=== PATIENT | female | born 1960 | race Caucasian/White ===

== ENCOUNTER 2024-02-01 13:56 | Outpatient (AMB) | payer OTHER, SELFPAY ==
--- NOTE | 2024-02-01 14:00 | A.OFFPC_ITS ---
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 Intake Note: New patient visit Allergies Penicillins Allergy (Intermediate, Verified 02/01/24 14:01) Rash Tobacco use date assessed: 02/01/24 Dental Screening Dental Screen Date: 02/01/24 Did you have a dental visit in the last 12 months?: Yes Did you have a dental problem in the last 6 months where you did not have access to dental care?: No Was dental information given to patient?: Patient has dentist HPI HPI Comments History of Present Illness Details This is a 64-year-old female with a past medical history of hyperlipidemia, CVA, hypercoagulopathy and vitamin-D deficiency presenting to [facility] care and have a comprehensive exam. She transferred from Dr. Ortiz at [facility] care. Her current medications include atorvastatin 20 mg daily and aspirin 81 mg. Patient was seen at [facility] on 09/11/2023 for transient visual disturbances in her left eye. She underwent a full workup due to history of CVA, and imaging was negative. Patient also saw an eye doctor. They are unsure if it was an ocular migraine or TIA. It was recommended she increase atorvastatin to 40 mg and see her neurologist, but she was lost to follow up and did not change the medication. LDL 92 at the hospital. She is planning to change her schedule at work to work part days 4 days per week, and she thinks that then she will be able to set aside more time to work on diet and exercise. She does not want to increase her cholesterol medication. She had a CVA 11/06/2021 about 3 weeks after COVID-19 infection. They performed thrombectomy with Angio-Seal. She had an implantable traffic monitor specialist. Hematol ogy workup was negative except for revealing prothrombin gene mutation. They recommended continuing aspirin 81 mg daily indefinitely. 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 She had endorsed chronic intermittent lightheadedness since the stroke that improved with time. Neuro notes indicated that orthostasis following the stroke was likely due to involvement of the insula. Patient says for a couple of weeks she was having some stiffness in her ankles when she 1st woke up in the morning, but it has been getting better during the past week. No pain or swelling. She will monitor this. Patient had a normal mammogram in December of 2022. She declines referral for a mammogram this year because of how many imaging studies she has had done. Recommended annual liberal arts and humanities chair exam. She had a colonoscopy last Monday at [facility]. Told to repeat it in ten years. Declines flu vaccine. Patient says she is up-to-date with tetanus vaccine. Records transfer from her last office is pending. ROS: Constitutional: No unexplained weight loss, fever, chills, fatigue or night sweats. Eyes: No vision changes, blurry vision, double vision, eye pain, eye redness, eye discharge. ENT: No hearing loss, sneezing, congestion, runny nose or sore throat. Respiratory: No shortness of breath, cough or sputum production. Cardiovascular: No chest pain, chest pressure or chest discomfort. No palpitations or pedal edema. Gastrointestinal: No anorexia, nausea, vomiting or diarrhea. No abdominal pain or blood in stool. Genitourinary: No dysuria, hematuria, urinary frequency. Neurologic: No headache, syncope, unilateral weakness, ataxia, numbness or tingling in the extremities. Musculoskeletal: No muscle pain, back pain, joint pain or swelling. Hematologic/Lymphatics: No bleeding. No painful lymph nodes. Skin: No rashes. No new or changing skin lesions. Endocrine: No cold or heat intolerance. No polyuria or polydipsia. Psychiatric: No depression or anxiety. No SI/HI. Physical exam: Constitutional: Alert, in no distress. Head: Normocephalic. Eyes: Pupils are equal, round and reactive to light. Extraocular muscles intact. Ear, Nose and Throat: Canals clear. TMs normal. Normal nasal mucosa. No nasal discharge. No oral lesions. Neck: Supple, Full range of motion. No lymphadenopathy. No palpable thyroid masses. Respiratory: Clear to auscultation. Cardiovascular: S1 S2 regular. No murmurs. No carotid bruits. Gastrointestinal: Abdomen soft, non-tender, non-distended. Normal bowel sounds. No palpable masses. Neurologic: No focal neurological deficits. Symmetric patellar reflexes. Moves all extremities spontaneously. Sensation intact bilaterally. Skin: Fading ecchymosis on the left forearm. 1 cm, mobile, rubbery left forearm lesion most consistent with lipoma by exam. Musculoskeletal: No gross deformities. Normal range of motion. Extremities: Warm and well perfused. No clubbing, cyanosis or edema. Psychiatric: Normal mood and affect [facility] Medical History (Updated 02/01/24 @ 16:58 by CORNEL Cabrales) Prothrombin gene mutation Transient vision disturbance History of CVA (cerebrovascular accident) Cervical polyp Surgical History (Updated 02/01/24 @ 16:58 by CORNEL Cabrales) Hx of tubal ligation History of hysteroscopy History of thrombectomy Social History Housing: House Patient Tobacco Use Status: Former Tobacco user Cigarettes Per Day: 3 Years Smoked: 10 e-Cigarette/Vaping Use: Never Used Second Hand Smoke Exposure: No service: No Current occupational status: employed 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 1. Little interest or pleasure in doing things: not at all 2. Feeling down, depressed, or hopeless: not at all 3. Trouble falling or staying asleep, or sleeping too much: not at all 4. Feeling tired or having little energy: not at all 5. Poor appetite or overeating: not at all 6. Feeling bad about yourself - or that you are a failure or have let yourself or your family down: not at all 7. Trouble concentrating on things, such as reading the newspaper or watching television: not at all 8. Moving or speaking so slowly that other people could have noticed. Or the opposite - being so fidgety or restless that you have been moving around a lot more than usual: not at all 9. Thoughts that you would be better off or of hurting yourself in some way: not at all Total score: 0 Source: Developed by Drs. Simon Car, Beatriz Montelongo, Eldon Serna and colleagues, with an educational nayely from [employer]. Thrive Questionnaire Date Thrive assessed: 01/25/24 I am a: Patient What is your living situation today?: I have a steady place to live Within the past 12 months, did the food you bought not last and you didn't have the money to get more?: Never true Within the past 12 months, did you worry whether your food would run out before you got money to buy more?: Never true Do you have trouble paying for medicines?: No Do you have trouble getting transportation to medical appointments?: No Do you have trouble paying your heating and electricity bill?: No Do you have trouble taking care of your child, family member or friend?: No Do you have trouble with day-to-day activities such as bathing, preparing meals, shopping, managing finances, etc.?: No Are you currently unemployed and looking for a job?: No Are you interested in more education?: No Please select the resources that you would like help with: None Currently or been in a relationship where the following occur: No concerns reported THRIVE Score: 0 AUDIT C Alcohol Use Questionnaire (AUDIT-C) 1. How often do you have a drink containing alcohol?: Monthly or less 2. How many drinks containing alcohol do you have on a typical day when you are drinking?: 1 or 2 3. How often do you have six or more drinks on one occasion?: Never Total Score: 1 JOHNNA-7 AMB Questionnaire JOHNNA-7 Feeling nervous, anxious, or on edge: 0 = Not at all Not being able to stop or control worryin = Not at all Worrying too much about different things: 0 = Not at all Trouble relaxin = Not at all Being so restless that it is hard to sit still: 0 = Not at all Becoming easily annoyed or irritable: 0 = Not at all Feeling afraid as if something awful might happen: 0 = Not at all Total JOHNNA-7 score (0-4 normal; 5-9 mild; 10-14 moderate; 15-21 severe): 0 Source: Developed by Drs. Simon Car, Beatriz Montelongo, Eldon Serna and colleagues, with an educational nayely from [employer]. Physical exam (Primary Care) Vital Signs: Last Vital Signs Temp 97.8 F 02/01/24 14:03 Pulse 55 02/01/24 14:03 Resp 12 02/01/24 14:03 BP 106/62 02/01/24 14:03 Pulse Ox 98 02/01/24 14:03 Oxygen Delivery Method Room Air 02/01/24 14:03 BMI result Body Mass Index 26.1 Tobacco/Smoking Status: Tobacco use Status Tobacco use date assessed 02/01/24 02/01/24 14:08 Patient Tobacco Use Status Former Tobacco user 02/01/24 14:08 e-Cigarette/Vaping Use Never Used 02/01/24 14:08 PHQ-9: PHQ-9 Score PHQ-9: Total score 0 02/01/24 14:15 Thrive Assessment: Date of Thrive Assessment Date Thrive assessed 01/25/24 02/01/24 14:08 Currently or been in a relationship where the following occur: No concerns reported Coding Level of Care Code Est Pt Prev Care 40-64y(09963) Diagnoses Routine physical examination Z00.00 Transient vision disturbance H53.9 History of CVA (cerebrovascular accident) Z86.73 Assessment & Plan Assessment & Plan (1) Routine physical examination: Code(s): Z00.00 - Encounter for general adult medical examination without abnormal findings Plan: Patient is seen today for a routine physical. 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 Patient referred back to Neurology at [facility]. Recommended increasing atorvastatin, but she declined. She is working on lifestyle modifications come March 20 when her schedule changes. Requested labs for 2024. Continue baby aspirin 81 mg daily indefinitely. She will continue the current dose of atorvastatin. (3) History of CVA (cerebrovascular accident): Comment: 2021 Code(s): Z86.73 - Personal history of transient ischemic attack (TIA), and cerebral infarction without residual deficits Category: Medical Plan: Follow up in 1 year for a physical exam. Orders: Orders Complete Blood Count Auto Diff Today D68.52 - Prothrombin gene mutation, H53.9 - Unspecified visual disturbance, Z00.00 - Encounter for general adult medical examination without abnormal findings, Z13.6 - Encounter for screening for cardiovascular disorders, Z86.73 - Personal history of transient ischemic attack (TIA), and cerebral infarction without residual deficits Comprehensive Met. Panel Today D68.52 - Prothrombin gene mutation, H53.9 - Unspecified visual disturbance, Z00.00 - Encounter for general adult medical examination without abnormal findings, Z13.6 - Encounter for screening for cardiovascular disorders, Z86.73 - Personal history of transient ischemic attack (TIA), and cerebral infarction without residual deficits Lipid Panel Today D68.52 - Prothrombin gene mutation, E78.5 - Hyperlipidemia, unspecified, H53.9 - Unspecified visual disturbance, Z00.00 - Encounter for general adult medical examination without abnormal findings, Z13.6 - Encounter for screening for cardiovascular disorders, Z86.73 - Personal history of transient ischemic attack (TIA), and cerebral infarction without residual deficits TSH reflex Free T4 Today D68.52 - Prothrombin gene mutation, H53.9 - Unspecified visual disturbance, Z00.00 - Encounter for general adult medical examination without abnormal findings, Z13.6 - Encounter for screening for cardiovascular disorders, Z86.73 - Personal history of transient ischemic attack (TIA), and cerebral infarction without residual deficits Referrals Neurology Referral Z86.73 - Personal history of transient ischemic attack (TIA), and cerebral infarction without residual deficits
[2024-02-01 14:03] VITALS: BP 106/62; PULSE 55; RESP 12; TEMP 36.6; O2SAT 98; BMI 26.1
== END 2024-02-01 14:52 | disposition home or self-care (01) ==
PROVIDERS: PCP Physician Assistant Medical; Visit Provider Physician Assistant Medical
DX: Z00.00 Encounter for general adult medical examination without abnormal findings (principal); H53.9 Unspecified visual disturbance; Z86.73 Personal history of transient ischemic attack (TIA), and cerebral infarction without residual deficits

== ENCOUNTER → 2024-02-01 13:56 | Outpatient (BNVA) | payer OTHER, SELFPAY | PROVIDERS: PCP Physician Assistant Medical; Visit Provider Physician Assistant Medical ==

== ENCOUNTER 2025-01-24 10:22 | Outpatient (REF) | payer OTHER, SELFPAY ==
[2025-01-24 11:25] LABS: MANUAL DIFF FLAG NO
[2025-01-24 11:50] LABS: Hematocrit 43.0 % (37.0-47.0); Hemoglobin 14.2 g/dl (12.0-16.0); Imm Gran Abs Auto 0.00 X10*3/uL (0.00-0.03); Imm Gran Pct Auto 0.0 % (0.0-0.4); Lymphocytes Absolute Auto 1.2 X10*3/uL (1.2-4.9); Mean Corpuscular HGB Conc 33.0 g/dl (31.0-35.0); Mean Corpuscular Hemoglobin 30.3 pg (27.0-33.0); Mean Corpuscular Volume 91.7 fL (80.0-98.0); NRBC Abs Auto 0.000 X10*3/uL (0.0-0.012); NRBC Pct Auto 0.0 /100WBC (0.0-0.2); Platelet Count 201 X10*3/uL (160-400); Red Blood Count 4.69 X10*6/uL (4.20-5.50); White Blood Count 3.9 X10*3/uL (4.8-10.8)
--- OUTSIDE RECORDS SUMMARY | 2025-01-24 12:13 | XMS_ITS | Encounter Summary ---
Author Organization [facility] Address [address] [place] [address] Care Team Providers Care Quality Measurement Specialist Name Role Phone Supriya Hand Primary Care Provider [phone] Encounter Details Date Type Department Care Team (Late st Contact Info) Description 10/25/2021 Orders Only [facility] Neuro Interventional Radiology [address] [place] [address] [id number] Ricardo Rae PA [address] [place], [place] [id number] Social History Tobacco Use Types Packs/Day Years Used Date Smoking Tobacco: Never Assessed Comments Unknown Sex and Gender Information Value Date Recorded Sex Assigned at Female 11/25/2021 7:43 PM EDT Legal Sex Female 12:21 PM EDT Gender Identity Female 11/25/2021 7:43 PM EDT Sexual Orientation Straight 11/25/2021 7: 43 PM EDT documented as of this encounter Plan of Treatment Not on file documented as of this encounter Procedures * Due to [place] law, this organization might not be sharing negative HIV tests. Procedure Name Priority Date/Time Associated Diagnosis Comments IR ACUTE STROKE MECHANICAL THROMBECTOMY Routine 10/25/2021 3:55 PM EDT documented in this encounter Results * Due to [place] law, this organization might not be sharing negative HIV tests. * IR Acute Stroke Mechanical Thrombectomy (10/25/2021 3:55 PM EDT) Anatomical Region Laterality Modality Lower Extremities, Upper Extremities X-Ray Angiography 10/26/2021 4:37 PM EDT Impressions 10/28/2021 8:15 AM EDT 1. Successful single-pass stent-retriever mechanical thrombectomy for treatment of a left inferior division M2/MCA occlusion with near complete recanalization (TICI 2C). 2. No acute intracranial hemorrhage or evidence of new large territory infarct on post procedure flat-panel head CT. * Please don't hesitate to contact the NeuroIR department at [address] [place] [address] for any patient-related questions or [phone] for any scheduling questions. I, Briseida Wilkerson, have reviewed the examination and concur with the findings as reported or so edited. Resident/Fellow:Miroslava Flores If this radiology report contains a blank impression section, it is an incomplete radiology report. Please contact the interpreting radiologist or applicable radiology division as soon as possible to obtain the completed interpretation. Workstation ID: [id number] Narrative 10/28/2021 8:15 AM EDT EMERGENT DIAGNOSTIC CEREBRAL ANGIOGRAPHY AND INTERVENTION PERFORMED BY THE DIVISION OF NEUROINTERVENTIONAL RADIOLOGY ([phone]) Clinical History: 61 year old woman with no past medical history who experienced stroke symptoms after waking up on Monday10/25/2021 when she went to the cafeteria and tried to talk. Last known well was the night prior (10:30pm on 10/24/2021). The patient's symptoms included word finding difficulties. Premorbid mRS was 0. NIH stroke scale was 4 on arrival to [facility] (as direct to [facility]). CT/CTA from the same day demonstrated a left inferior division M2 occlusion with a large penumbra in the left MCA territory. (ASPECTS score = 10). CTA showed very good collaterals. No tPA was given as patient was outside of the treatment window. Emergent diagnostic cerebral angiography and thrombectomy was requested by the stroke team. Diagnosis: Acute ischemic stroke, L inferior division M2/MCA occlusion. Comparison: CT head, CTA head/neck and CT Perfusion (outside study) Operators: Dr. Briseida Wilkerson (PRAMOD Attending) and Dr. Abner Olsen (PRAMOD attending) Fellow: Dr Miroslava Flores (PRAMOD Fellow) Sedation: Procedure was performed under general anesthesia provided by the Department of Anesthesiology. Continuous cardiovascular monitoring was performed. Contrast Material: A total amount of 60 mL of Visipaque 320 was used. Access: Right common femoral artery. Closure: 8 Faroese Angio-Seal Radiation dose: Fluoroscopy Time: 8.1 min Frontal - 387.01 mGy Lateral - 138.12 mGy Technique: Part A: Diagnostic angiography with selective catheterization of following vessels: 1. Left common carotid artery, frontal and lateral views of the neck. 2. Left internal carotid artery, frontal and lateral views of the head. 3. Right common femoral artery angiogram, ZAMBIAN view. Part B: Endovascular Treatment: Mechanical thrombectomy/aspiration of a left inferior division M2/MCA occlusion. 1. Placement, under biplane roadmap, of an 8 Faroese EmboGuard balloon guide catheter, within the left internal carotid artery. 2. Magnified frontal and lateral angiograms of the head, via balloon guide catheter contrast injection, centered on the left MCA territory. 3. Via triaxial technique, navigation of a 5F Rae aspiration catheter, over a Phenom 21 microcatheter and Synchro 0.014 microguidewire, into the left ICA. 4. Via coaxial technique, navigation of the microcatheter, over a Synchro 0.014 microguidewire, within the left MCA. 5. Magnified frontal and lateral angiograms of the head, via microcatheter contrast injection, centered on the left MCA territory. 6. Deployment of a 3 x 20 mm Solitaire thrombectomy device, spanning within a left inferior division M2 branch to distal M1 segment. 7. The device was allowed to intercalate with the clot for 4 minutes. 8. Removal of the microcatheter under fluoroscopy. 9. Inflation of the guiding catheter balloon. 10. Retrieval of the thrombectomy device into the Rae 5 aspiration catheter until resistance was felt and subsequent removal of the entire system under constant aspiration (ARTS technique). 11. Follow-up magnified frontal and lateral left ICA angiograms via balloon guide catheter contrast injection, centered on the left MCA territory. 12. Left internal carotid artery, slow intra-arterial infusion of 10 mg of verapamil over 5 minutes. 13. Follow-up frontal and lateral left ICA angiograms via balloon guide catheter contrast injection, with full view of the head. 14. Post-procedural flat panel XperCT acquisition of the entire head was obtained to exclude any new cerebral infarct or hemorrhagic complication. Procedure Report: Informed consent: The details of the procedure including the benefits and risks were discussed with the patient, including risks of minor, major stroke, and major bleeding necessitating surgical intervention, contrast reaction, groin hematoma and . Informed verbal consent was obtained from the patient and placed in the patient's medical chart. A. Diagnostic Angiography Both groins were draped and prepped in a sterile fashion. Using the modified Seldinger technique and a micropuncture system, an 8 Faroese long femoral sheath was placed in the right common femoral artery. Then, an 8 Faroese Emboguard balloon guide catheter was navigated over a 5F Neuron Select catheter and Terumo 0.035 Glidewire into the aortic arch under fluoroscopic guidance. Under fluoroscopy, the catheter was placed into the left common carotid artery and frontal and lateral views were acquired. The catheter was then advanced into the left internal carotid artery followed by frontal and lateral view angiograms of the left ICA. FINDINGS: 1. There is an occlusion of the left inferior divsion M2 segment. Right common femoral artery angiogram: Normal course and caliber of the right common femoral artery. The arteriotomy site is above the femoral bifurcation in a segment of vessel that is more than 5 mm in diameter. Part B: Endovascular Treatment: Mechanical thrombectomy/aspiration of a left M2/MCA occlusion. The balloon guide catheter was then navigated within the distal cervical segment of the left ICA. Magnified frontal and lateral angiograms of the head, via balloon guide catheter contrast injection, centered on the left MCA territory were obtained. Via triaxial technique, a 5F Rae aspiration catheter was navigated over a Phenom 21 microcatheter and Synchro 0.014 microguidewire, into the left ICA. Via triaxial technique, the microcatheter was navigated, over a Synchro 0.014 microguidewire, into the left inferior division M2 segment. Then a 3 x 20 Solitaire thrombectomy device was deployed, spanning from the left M2 to distal M1 segment. The device was allowed to intercalate with the clot for 4 minutes. Under fluoroscopy, the microcatheter was subsequently removed. The guiding catheter balloon was inflated in the left ICA. Retrieval of the stent retriever into the intermediate catheter was performed under constant aspiration until resistance was felt (ARTS technique) followed by removal of the entire system. Follow-up frontal and lateral angiograms of the head were performed, demonstrating a near complete recanalization of the left M2/MCA occlusion (TICI 2C), with hoahaoism of antegrade flow. Slow flow cortical vessels are noted in the parietal/angular branch territory. Mild guide catheter induced vasospasm was noted in the cervical left ICA. 10mg verapamil were ehsan infused intra-arterially into the left ICA. Balloon guide catheter was retracted into the proximal left internal carotid artery followed by frontal and lateral views of the left ICA contrast injection, showing improvement of the previously seen vasospasm as well as unchanged intracracranial flow (TICI 2C). There was no hemorrhagic complication or new large territory infarct on post procedural flat-panel head CT. After the endovascular intracranial mechanical thrombectomy/aspiration procedure, an 8 Faroese Angioseal closure device was placed at the right common femoral artery access site. Adequate hemostasis was achieved. The sites were cleansed and a sterile dressing was applied. Complications: None. Resulting Agency Comment [id number] Procedure Note Briseida Wilkerson MD - 10/28/2021 EMERGENT DIAGNOSTIC CEREBRAL ANGIOGRAPHY AND INTERVENTION PERFORMED BY THEDIVISION OF NEUROINTERVENTIONAL RADIOLOGY ([phone]) Clinical History: 61 year old woman with no past medical history whoexperienced stroke symptoms after waking up on Monday10/25/2021 when shewent to the cafeteria and tried to talk. Last known well was the nightprior (10:30pm on 10/24/2021). The patient's symptoms included word findingdifficulties. Premorbid mRS was 0. [facility] CT/CTA from the same day demonstrated a leftinferior division M2 occlusion with a large penumbra in the left MCAterritory. (ASPECTS score = 10). CTA showed very good collaterals. No tPAwas given as patient was outside of the treatment window. Emergentdiagnostic cerebral angiography and thrombectomy was requested by thestroke team. Diagnosis: Acute ischemic stroke, L inferior division M2/MCA occlusion. Comparison: CT head, CTA head/neck and CT Perfusion (outside study) Operators: Dr. Briseida Wilkerson (PRAMOD Attending) and Dr. Abner Olsen (NIRattending) Fellow: Dr Miroslava Flores (PRAMOD Fellow) Sedation: Procedure was performed under [facility]. Continuous cardiovascular monitoring wasperformed. Contrast Material: A total amount of 60 mL of Visipaque 320 was used. Access: Right common femoral artery. Closure: 8 Faroese Angio-Seal Radiation dose: Fluoroscopy Time: 8.1 min Frontal - 387.01 mGy Lateral - 138.12 mGy Technique: Part A: Diagnostic angiography with selective catheterization of followingvessels: 1. Left common carotid artery, frontal and lateral views of the neck. 2. Left internal carotid artery, frontal and lateral views of the head. 3. Right common femoral artery angiogram, ZAMBIAN view. Part B: Endovascular Treatment: Mechanical thrombectomy/aspiration of aleft inferior division M2/MCA occlusion. 1. Placement, under biplane roadmap, of an 8 Faroese EmboGuard balloonguide catheter, within the left internal carotid artery. 2. Magnified frontal and lateral angiograms of the head, via balloonguide catheter contrast injection, centered on the left MCA territory. 3. Via triaxial technique, navigation of a 5F Rae aspiration catheter,over a Phenom 21 microcatheter and Synchro 0.014 microguidewire, into theleft ICA. 4. Via coaxial technique, navigation of the microcatheter, over a Synchro0.014 microguidewire, within the left MCA. 5. Magnified frontal and lateral angiograms of the head, viamicrocatheter contrast injection, centered on the left MCA territory. 6. Deployment of a 3 x 20 mm Solitaire thrombectomy device, spanningwithin a left inferior division M2 branch to distal M1 segment. 7. The device was allowed to intercalate with the clot for 4 minutes. 8. Removal of the microcatheter under fluoroscopy. 9. Inflation of the guiding catheter balloon. 10. Retrieval of the thrombectomy device into the Rae 5 aspirationcatheter until resistance was felt and subsequent removal of the entiresystem under constant aspiration (ARTS technique). 11. Follow-up magnified frontal and lateral left ICA angiograms viaballoon guide catheter contrast injection, centered on the left MCAterritory. 12. Left internal carotid artery, slow intra-arterial infusion of 10 mgof verapamil over 5 minutes. 13. Follow-up frontal and lateral left ICA angiograms via balloon guidecatheter contrast injection, with full view of the head. 14. Post-procedural flat panel XperCT acquisition of the entire head wasobtained to exclude any new cerebral infarct or hemorrhagic complication. Procedure Report: Informed consent: The details of the procedure including the benefits andrisks were discussed with the patient, including risks of minor, majorstroke, and major bleeding necessitating surgical intervention, contrastreaction, groin hematoma and . Informed verbal consent was obtainedfrom the patient and placed in the patient's medical chart. A. Diagnostic Angiography Both groins were draped and prepped in a sterile fashion. Using themodified Seldinger technique and a micropuncture system, an 8 Faroese longfemoral sheath was placed in the right common femoral artery. Then, an 8 Faroese Emboguard balloon guide catheter was navigated over a 5FNeuron Select catheter and Terumo 0.035 Glidewire into the aortic archunder fluoroscopic guidance. Under fluoroscopy, the catheter was placed into the left common carotidartery and frontal and lateral views were acquired. The catheter was thenadvanced into the left internal carotid artery followed by frontal andlateral view angiograms of the left ICA. FINDINGS: 1. There is an occlusion of the left inferior divsion M2 segment. Right common femoral artery angiogram: Normal course and caliber of theright common femoral artery. The arteriotomy site is above the femoralbifurcation in a segment of vessel that is more than 5 mm in diameter. Part B: Endovascular Treatment: Mechanical thrombectomy/aspiration of aleft M2/MCA occlusion. The balloon guide catheter was then navigated within the distal cervicalsegment of the left ICA. Magnified frontal and lateral angiograms of thehead, via balloon guide catheter contrast injection, centered on the leftMCA territory were obtained. Via triaxial technique, a 5F Rae aspiration catheter was navigated overa Phenom 21 microcatheter and Synchro 0.014 microguidewire, into the leftICA. Via triaxial technique, the microcatheter was navigated, over aSynchro 0.014 microguidewire, into the left inferior division M2 segment. Then a 3 x 20 Solitaire thrombectomy device was deployed, spanning fromthe left M2 to distal M1 segment. The device was allowed to intercalatewith the clot for 4 minutes. Under fluoroscopy, the microcatheter wassubsequently removed. The guiding catheter balloon was inflated in theleft ICA. Retrieval of the stent retriever into the intermediate catheterwas performed under constant aspiration until resistance was felt (ARTStechnique) followed by removal of the entire system. Follow-up frontal and lateral angiograms of the head were performed,demonstrating a near complete recanalization of the left M2/MCA occlusion(TICI 2C), with hoahaoism of antegrade flow. Slow flow cortical vesselsare noted in the parietal/angular branch territory. Mild guide catheter induced vasospasm was noted in the cervical left ICA.10mg verapamil were ehsan infused intra-arterially into the left ICA.Balloon guide catheter was retracted into the proximal left internalcarotid artery followed by frontal and lateral views of the left ICAcontrast injection, showing improvement of the previously seen vasospasmas well as unchanged intracracranial flow (TICI 2C). There was no hemorrhagic complication or new large territory infarct onpost procedural flat-panel head CT. After the endovascular intracranial mechanical thrombectomy/aspirationprocedure, an 8 Faroese Angioseal closure device was placed at the rightcommon femoral artery access site. Adequate hemostasis was achieved. Thesites were cleansed and a sterile dressing was applied. Complications: None. IMPRESSION: 1. Successful single-pass stent-retriever mechanical thrombectomy fortreatment of a left inferior division M2/MCA occlusion with near completerecanalization (TICI 2C). 2. No acute intracranial hemorrhage or evidence of new large territoryinfarct on post procedure flat-panel head CT. * Please don't hesitate to contact the NeuroIR department at [phone] any patient-related questions or [phone] for any schedulingquestions. I, Briseida Wilkerson, have reviewed the examination and concur with the findingsas reported or so edited. Resident/Fellow:Miroslava Flores If this radiology report contains a blank impression section, it is anincomplete radiology report. Please contact the interpreting radiologistor applicable radiology division as soon as possible to obtain thecompleted interpretation. Workstation ID: [id number] Ricardo UNGER [facility] IR PROCEDURES Final Re sult documented in this encounter Visit Diagnoses Not on filedocumented in this encounter Care Teams Quality Measurement Specialist Relationship Specialty Start Date End Date CarmelaSupriya De Anda [address] [place] [address] PCP - General Family Medicine 10/05/23 documented as of this encounter
--- OUTSIDE RECORDS SUMMARY | 2025-01-24 12:13 | XMS_ITS | Encounter Summary ---
Author Organization [facility] Address [address] [place] [address] Care Team Providers Care Cloth Sponger Name Role Phone Supriya Hand Primary Care Provider [phone] Encounter Details Date Type Department Care Team (Late st Contact Info) Description 11/29/2021 myChart Message [facility] [address] [place] [address] [phone] Bessie Santoyo, RN PRAMOD phone # [phone] Social History Tobacco Use Types Packs/Day Years [...] on file documented as of this encounter Visit Diagnoses Not on filedocumented in this encounter Care Teams Cloth Sponger Relationship Specialty Start Date End Date YazanSupriya [address] [place] [address] PCP - General Family Medicine 10/05/23 documented as of this encounter
--- OUTSIDE RECORDS SUMMARY | 2025-01-24 12:13 | XMS_ITS | Encounter Summary ---
Author Organization [facility] Address [address] [place] [address] Care Team Providers Care Turfgrass Management Professor Name Role Phone Supriya Hand Primary Care Provider [phone] Encounter Details Date Type Department Care Team ([facility] st Contact Info) Description 10/25/2021 Telephone [facility] Interventional Radiology [address] [place] [id number] Erica Fraga RN Social History Tobacco Use Types Packs/Day Years [...] on filedocumented in this encounter Care Teams Turfgrass Management Professor Relationship Specialty Start Date End Date Supriya Hand [address] [place] [address] PCP - General Family Medicine 10/05/23 documented as of this encounter
--- OUTSIDE RECORDS SUMMARY | 2025-01-24 12:13 | XMS_ITS | Clinical Summary ---
Author Organization [facility] Address [address] [place] [address] Care Team Providers Care News Editor Name Role Phone Supriya Hand Primary Care Provider [phone] Allergies Active Allergy Reactions Criticality Noted Date Comments Amoxicillin Unknown 10/25/2021 Reported by son. Needs to be confirmed by patient Penicillin Unknown 10/25/2021 Reported by son. Needs to be confirmed by patient Medications aspirin chewable tablet 81 mg Chew and swallow 1 tablet (81 mg total) by mouth once a day. 30 tablet 11 2 Active atorvastatin (LIPITOR) 80 mg tablet Take 1 tablet (80 mg total) by mouth nightly. 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 Social History Tobacco Use Types Packs/Day Years Used Date Smoking Tobacco: Never Smokeless Tobacco: Never Tobacco Cessation:Counseling Given: Not Answered Alcohol Use Standard Drinks/Week Comments Yes 0 (1 standard drink = 0.6 oz pur e alcohol) 1 martini per week Comments Unknown Sex and Gender Information Value Date Recorded Sex Assigned at Female 11/25/2021 7:43 PM EDT Legal Sex Female 12:21 PM EDT Gender Identity Female 11/25/2021 7:43 PM EDT Sexual Orientation Straight 11/25/2021 7: 43 PM EDT Last Filed Vital Signs Vital Sign Reading Time Taken Comments Blood Pressure 117/68 10/27/2021 12:15 PM EDT Pulse 51 10/27/2021 12:00 PM EDT Temperature 36.8 C (98.2 F) 10/27/2021 12:30 PM EDT Respiratory Rate 18 10/27/2021 12:00 PM EDT Oxygen Saturation 100% 10/27/2021 12:30 PM EDT Inhaled Oxygen Concentration - - Weight 70.3 kg (155 lb) 04/05/2023 10:19 AM EST Height 170.2 cm (5' 7 ) 10/26/2021 11:53 AM EDT Body Mass Index 24.28 10/26/2021 11:53 AM EDT Plan of Treatment Health Maintenance Due Date Last Done Comments Cervical Cancer Screening 1961 Cologuard 1961 Colon Cancer Screening 1961 Colonoscopy 1961 FOBT / Fit Test 1961 HIV Screening 1961 HPV and Pap Smear 1961 Pap Smear 1961 Sigmoidoscopy 1961 DTaP,Tdap,and Td Vaccines (1 - Tdap) 1983 Mammogram 2001 Pneumococcal Vaccine: 50+ Years (1 of 1 - PCV) 2011 Zoster Vaccines (1 of 2) 2011 Alcohol/Substance Use Screening 03/20/2024 COVID-19 Vaccine (4 - 2024-2 6 season) 2024 02/19/2021, 05/02/2020, 04/04/2020 Influenza Vaccine (#1) 2024 RSV Vaccine (60+ years old a nd patients) (1 - 1-dose 75+ series) 01/12/2036 Hepatitis B Vaccines Aged Out No long er eligible based on patient's age to complete this topic Medical Devices Implanted Type Area Online Advertising Manager Device Identifier Shelf Expiration Date Model / Serial / Lot Device Closure Vascular Plug 8fr Angio-Seal Vip - [id number] Implanted:Qty: 1 on 10/25/2021 at [facility] Implant [employer] 07/17/2022 [id number] / / [id number] Lnq22 Linq Ii [id number] [id number] Implanted:04/07 (Quantity not on file) Implantable Loop Recorder Medtronic LNQ22 LINQ II / RLB [id number] / Implantable Loop Recorder-1/19/2 023 Implanted:04/07 by Nestor Tobias NP (Quantity not on file) Explanted:02/07 by Reji Roblero NP (Quantity not on file) Implantable Loop Recorder Left: Chest Medtronic LINQ22 / RLB [id number] / [id number] Lnq22 [id number] Implanted:04/07 (Quantity not on file) Pacemaker Medtronic LNQ22 / [id number] / Insurance on file Advance Directives * Full Code (Latest Code Status on File) Date Activated Date Inactivated Comments 10/25/2021 4:41 PM 10/28/2021 9:22 AM Care Teams News Editor Relationship Specialty Start Date End Date Supriya Hand [address] [place] [address] PCP - General Family Medicine 10/05/23
--- OUTSIDE RECORDS SUMMARY | 2025-01-24 12:13 | XMS_ITS | Encounter Summary ---
Author Organization [facility] Address [address] [place] [address] Care Team Providers Care Investment Professional Name Role Phone Supriya Hand Primary Care Provider [phone] Encounter Details Date Type Department Care Team (Late st Contact Info) Description 02/09/2022 myChart Message [facility] [address] [place] [phone] Jacqueline Flores MD [address] [place] [address] Phone call Social History Tobacco Use Types Packs/Day Years [...] on filedocumented in this encounter Care Teams Investment Professional Relationship Specialty Start Date End Date YazanSupriya [address] [place] [address] PCP - General Family Medicine 10/05/23 documented as of this encounter
--- OUTSIDE RECORDS SUMMARY | 2025-01-24 12:13 | XMS_ITS | Encounter Summary ---
Author Organization [facility] Address [address] [place] [address] Care Team Providers Care Castables Worker Name Role Phone Supriya Hand Primary Care Provider [phone] Encounter Details Date Type Department Care Team (Late st Contact Info) Description 11/29/2021 myChart Message [facility] [address] [place] [address] [phone] Bessie Santoyo, RN internal loop recorder Social History Tobacco Use Types Packs/Day Years [...] on filedocumented in this encounter Care Teams Castables Worker Relationship Specialty Start Date End Date CarmelaSupriya De Anda [address] [place] [address] PCP - General Family Medicine 10/05/23 documented as of this encounter
--- OUTSIDE RECORDS SUMMARY | 2025-01-24 12:13 | XMS_ITS | Encounter Summary ---
Author Organization [facility] Address [address] [place] [address] Care Team Providers Care Scaffolder Name Role Phone Supriya Hand Primary Care Provider [phone] Encounter Details Date Type Department Care Team (Late st Contact Info) Description 03/23/2022 myChart Message [facility] [address] [place] [address] [phone] Mychart, Generic Provider [address] [place] [phone] Implantable loop recorder Social History Tobacco Use Types [...] on filedocumented in this encounter Care Teams Scaffolder Relationship Specialty Start Date End Date Supriya Hand [address] [place] [address] PCP - General Family Medicine 10/05/23 documented as of this encounter
--- OUTSIDE RECORDS SUMMARY | 2025-01-24 12:13 | XMS_ITS | Encounter Summary ---
Author Organization [facility] Address [address] [place] [address] Care Team Providers Care Chef Concierge Name Role Phone Supriya Hand Primary Care Provider [phone] Encounter Details Date Type Department Care Team (Late st Contact Info) Description 11/26/2021 myChart Message [facility] [address] [place] [address] [phone] Mychart, Generic Provider [address] [place] [phone] Question about cost of ILR Social History Tobacco Use Types Packs/Day Years [...] on filedocumented in this encounter Care Teams Chef Concierge Relationship Specialty Start Date End Date Supriya Hand [address] [place] [address] PCP - General Family Medicine 10/05/23 documented as of this encounter
--- OUTSIDE RECORDS SUMMARY | 2025-01-24 12:13 | XMS_ITS | Encounter Summary ---
Author Organization [facility] Address [address] [place] [address] Care Team Providers Care Cloth Designer Name Role Phone Supriya Hand Primary Care Provider [phone] Encounter Details Date Type Department Care Team (Late st Contact Info) Description 02/07/2022 Orders Only [facility] [address] [place] [phone] [address] Social History Tobacco Use Types Packs/Day Years Used Date Smoking Tobacco: Never Assessed Comments Unknown Sex and Gender Information Value Date Recorded Sex Assigned at Female 11/25/2021 7:43 PM EDT Legal Sex Female 12:21 PM EDT Gender Identity Female 11/25/2021 7:43 PM EDT Sexual Orientation Straight 11/25/2021 7 :43 PM EDT documented as of this encounter Plan of Treatment Not on file documented as of this encounter Procedures * Due to [place] law, this organization might not be sharing negative HIV tests. Procedure Name Priority Date/Time Associated Diagnosis Comments LAB - SCANNED Routine 01/12/2022 documented in this encounter Results * Due to [place] law, this organization might not be sharing negative HIV tests. * LAB - SCANNED (01/12/2022) [facility] LAB HISTORICAL RESULTS Final Result documented in this encounter Visit Diagnoses Not on filedocumented in this encounter Care Teams Cloth Designer Relationship Specialty Start Date End Date Supriya Hand [address] [place] [address] PCP - General Family Medicine 10/05/23 documented as of this encounter
--- OUTSIDE RECORDS SUMMARY | 2025-01-24 12:13 | XMS_ITS | Encounter Summary ---
Author Organization [facility] Address [address] [place] [address] Care Team Providers Care Harvest Contractor Name Role Phone Supriya Hand Primary Care Provider [phone] Encounter Details Date Type Department Care Team (Late st Contact Info) Description 12/15/2021 myChart Message [facility] [address] [place] [phone] Mychart, Generic Provider [address] [place] [phone] 'dizziness complaints Social History Tobacco Use Types Packs/Day Years [...] on filedocumented in this encounter Care Teams Harvest Contractor Relationship Specialty Start Date End Date Supriya Hand [address] [place] [address] PCP - General Family Medicine 10/05/23 documented as of this encounter
--- OUTSIDE RECORDS SUMMARY | 2025-01-24 12:13 | XMS_ITS | Clinical Summary ---
Author Organization [facility] Address [address] [place] [address] Care Team Providers Care Railway Yard Assistant Name Role Phone Unavailable Primary Care Provider Unavailabl e Social History Tobacco Use Types Packs/Day Years Used Date Smoking Tobacco: Never Assessed Comments Unknown Sex and Gender Information Value Date Recorded Sex Assigned at Not on file Legal Sex Female 11:16 PM EDT Gender Identity Not on file Sexual Orientation Not on file Plan of Treatment Health Maintenance Due Date Last Done Comments Hepatitis C Virus Screening 1961 HIV Screening 1974 DTaP/Tdap/Td Vaccines (1 - Tdap) 01/12/1980 Pneumococcal Vaccines 50+ (1 of 1 - PCV) 2011 Zoster (Shingles) Vaccine (1 of 2) 2011 COVID-19 Vaccine ( - 2023-2 5 season) 2024 RSV Vaccine 50 years and old er and Patients (1 - 1-dose 75+ series) 01/12/2036 Hepatitis B Vaccines Aged Out No long er eligible based on patient's age to complete this topic
--- OUTSIDE RECORDS SUMMARY | 2025-01-24 12:13 | XMS_ITS | Encounter Summary ---
Author Organization [facility] Address [address] [place] [address] Care Team Providers Care Red Hat Open Stack Administrator Name Role Phone Supriya Hand Primary Care Provider [phone] Encounter Details Date Type Department Care Team (Late st Contact Info) Description 12/14/2021 myChart Message [facility] [address] [place] [address] [phone] Mychart, Generic Provider [address] [place] [phone] 30 day heart monitor report Social History Tobacco Use Types Packs/Day Years [...] on filedocumented in this encounter Care Teams Red Hat Open Stack Administrator Relationship Specialty Start Date End Date Supriya Hand [address] [place] [address] PCP - General Family Medicine 10/05/23 documented as of this encounter
[2025-01-24 12:33] LABS: Alanine Aminotransferase 37 U/L (0-31); Albumin Level 4.3 g/dL (3.5-5.0); Alkaline Phosphatase 63 U/L (39-117); Anion Gap 10 (12-20); Aspartate Amino Transferase 38 U/L (5-31); Blood Urea Nitrogen 18 mg/dL (9-16); Calcium 8.9 mg/dL (8.4-10.2); Carbon Dioxide 31 mmol/L (22-29); Chloride 105 mmol/L (96-108); Cholesterol 155 mg/dL (<200); Estimated Glomerular Filt Rate > 60; HDL Cholesterol 63 mg/dL (>40); Potassium 3.9 mmol/L (3.3-5.1); Sodium 142 mmol/L (135-145); Total Protein 6.7 g/dL (6.5-8.0); Triglycerides 42 mg/dL (<150)
== END 2025-01-24 10:23 | disposition home or self-care (01) ==
LOC: HO.WFDLDS 10:22
PROVIDERS: Visit Provider Physician Assistant Medical
DX: Z00.00 Encounter for general adult medical examination without abnormal findings (principal); H53.9 Unspecified visual disturbance; D68.52 Prothrombin gene mutation; E78.5 Hyperlipidemia, unspecified; Z13.6 Encounter for screening for cardiovascular disorders; Z86.73 Personal history of transient ischemic attack (TIA), and cerebral infarction without residual deficits
CPT/HCPCS: 36415; 80053; 80061; 84443; 85025

== ENCOUNTER 2025-02-03 16:02 | Outpatient (AMB) | payer OTHER, SELFPAY ==
--- NOTE | 2025-02-03 16:09 | A.OFFPC_ITS ---
Vital Signs 02/03/25 16:13 02/03/25 22:04 Height 5 ft 4.65 in Weight 160 lb BMI 26.9 BP 133/79 Blood Pressure Location Lt brachial Position Sitting Respiration 13 Pulse 53 Pulse Source Pulse Oximeter Temp 96.6 F L 98.1 F Temp Source Temporal Artery Scan Temporal Artery Scan Pulse Oximetry (%) 99 Oxygen Delivery Method Room Air Intake Visit Reasons: annual CPE Intake Note: CPE. Patien c/o feeling dizzy on and off but worse in the last couple of days. Registered Nurse Supervisor Required: No Allergies Penicillins Allergy (Intermediate, Verified 02/03/25 16:13) Rash Tobacco use date assessed: 02/03/25 Fall risk assessment: No Falls in past year Last assessed Fall Risk: 02/03/25 Dental Screening Dental Screen Date: 02/03/25 Did you have a dental visit in the last 12 months?: Yes Did you have a dental problem in the last 6 months where you did not have access to dental care?: No Was dental information given to patient?: Patient has dentist HPI HPI Comments History of Present Illness Details This is a 65-year-old female with a past medical history of hyperlipidemia, CVA, hypercoagulopathy and vitamin-D deficiency presenting for a physical exam. We reviewed her recent labs which showed mild abnormalities with her white blood cell count and liver enzymes. She does not drink alcohol. She does take a statin. The dose has not been adjusted. Denies recent infections. She had a CVA 11/06/2021 about 3 weeks after COVID-19 infection. They performed thrombectomy with Angio-Seal. She had an implantable case monitor for 2 years. Hematology workup was negative except for revealing prothrombin gene mutation. They recommended continuing aspirin 81 mg daily indefinitely. 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 She continues to endorse chronic dizziness that only began after having the stroke. Neuro notes indicated that orthostasis following the stroke was likely due to involvement of the insula. She has a chronically low heart rate in the 50s. Denies chest pain or shortness of breath. She has been told to increase her fluid intake. She does not notice any correlation with allergies and dizziness. Denies congestion. LDL cholesterol 84. She endorses soreness on the outer aside of the right foot for the past year. No aggravating or alleviating factors. No history of trauma. No swelling, numbness or tingling. She had her colonoscopy completed at [facility] in January of 2024, and she was told to repeat it in 10 years. She sees Gynecology, and she discussed getting a bone density test at age 66 y ears old. Patient said she had a mammogram within the past year. She declines all vaccinations. ROS: Constitutional: No unexplained weight loss, fever, chills, fatigue or night sweats. Eyes: No vision changes, blurry vision, double vision, eye pain, eye redness, eye discharge. ENT: No hearing loss, sneezing, congestion, runny nose or sore throat. Respiratory: No shortness of breath, cough or sputum production. Cardiovascular: No chest pain, chest pressure or chest discomfort. No palpitations or pedal edema. Gastrointestinal: No anorexia, nausea, vomiting or diarrhea. No abdominal pain or blood in stool. Genitourinary: No dysuria, hematuria, urinary frequency. Neurologic: No headache, syncope, unilateral weakness, ataxia, numbness or tingling in the extremities. Musculoskeletal: See HPI Hematologic/Lymphatics: No bleeding. No painful lymph nodes. Skin: No rashes. No new or changing skin lesions. Endocrine: No cold or heat intolerance. No polyuria or polydipsia. Psychiatric: No depression or anxiety. No SI/HI. Physical exam: Constitutional: Alert, in no distress. Head: Normocephalic. Eyes: Pupils are equal, round and reactive to light. Extraocular muscles intact. Ear, Nose and Throat: Canals clear. TMs normal. Normal nasal mucosa. No nasal discharge. No oral lesions. Neck: Supple, Full range of motion. No lymphadenopathy. No palpable thyroid masses. Respiratory: Clear to auscultation. Cardiovascular: S1 S2 regular. No murmurs. No carotid bruits. Gastrointestinal: Abdomen soft, non-tender, non-distended. Normal bowel sounds. No palpable masses. Neurologic: No focal neurological deficits. Symmetric patellar reflexes. Moves all extremities spontaneously. Skin: No rashes Musculoskeletal: No gross deformities. Normal range of motion. Extremities: Warm and well perfused. No clubbing, cyanosis or edema. Psychiatric: Normal mood and affect [facility] Medical History (Updated 02/04/25 @ 12:39 by CORNEL Cabrales) Bradycardia Left foot pain Decreased white blood cell count Elevated liver enzymes Prothrombin gene mutation Transient vision disturbance History of CVA (cerebrovascular accident) Cervical polyp Surgical History (Updated 03/21/24 @ 12:33 by CORNEL Cabrales) History of loop recorder Hx of tubal ligation History of hysteroscopy History of thrombectomy Social History Housing: House Patient Tobacco Use Status: Former Tobacco user Cigarettes Per Day: 3 Years Smoked: 10 Packs per year/per ci.50 e-Cigarette/Vaping Use: Never Used Second Hand Smoke Exposure: No service: No Current occupational status: employed 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 1. Little interest or pleasure in doing things: not at all 2. Feeling down, depressed, or hopeless: not at all 3. Trouble falling or staying asleep, or sleeping too much: not at all 4. Feeling tired or having little energy: not at all 5. Poor appetite or overeating: not at all 6. Feeling bad about yourself - or that you are a failure or have let yourself or your family down: not at all 7. Trouble concentrating on things, such as reading the newspaper or watching television: not at all 8. Moving or speaking so slowly that other people could have noticed. Or the opposite - being so fidgety or restless that you have been moving around a lot more than usual: not at all 9. Thoughts that you would be better off or of hurting yourself in some way: not at all Total score: 0 Depression Screening Interpretation: Negative Depression Screening Done: Yes 64568 - PHQ-9 Billing: Yes Source: Developed by Drs. Simon Car, Beatriz Montelongo, Eldon Serna and colleagues, with an educational nayely from [employer]. Thrive Questionnaire Date Thrive assessed: 02/03/25 I am a: Patient What is your living situation today?: I have a steady place to live Within the past 12 months, did the food you bought not last and you didn't have the money to get more?: Never true Within the past 12 months, did you worry whether your food would run out before you got money to buy more?: Never true Do you have trouble paying for medicines?: No Do you have trouble getting transportation to medical appointments?: No Do you have trouble paying your heating and electricity bill?: No Do you have trouble taking care of your child, family member or friend?: No Do you have trouble with day-to-day activities such as bathing, preparing meals, shopping, managing finances, etc.?: No Are you currently unemployed and looking for a job?: No Are you interested in more education?: No Please select the resources that you would like help with: None Currently or been in a relationship where the following occur: No concerns reported THRIVE Score: 0 AUDIT C Alcohol Use Questionnaire (AUDIT-C) 1. How often do you have a drink containing alcohol?: Monthly or less 2. How many drinks containing alcohol do you have on a typical day when you are drinking?: 1 or 2 3. How often do you have six or more drinks on one occasion?: Never Total Score: 1 JOHNNA-7 AMB Questionnaire JOHNNA-7 Date JOHNNA - 7 assessed: 02/03/25 Feeling nervous, anxious, or on edge: 0 = Not at all Not being able to stop or control worryin = Not at all Worrying too much about different things: 0 = Not at all Trouble relaxin = Not at all Being so restless that it is hard to sit still: 0 = Not at all Becoming easily annoyed or irritable: 0 = Not at all Feeling afraid as if something awful might happen: 0 = Not at all Total JOHNNA-7 score (0-4 normal; 5-9 mild; 10-14 moderate; 15-21 severe): 0 Source: Developed by Drs. Simon Car, Beatriz Montelongo, Eldon Serna and colleagues, with an educational nayely from [employer]. JOHNNA-7 Assessment Billing JOHNNA-7 Assessment Tool: JOHNNA-7 Assessment 56946 Physical exam (Primary Care) Vital Signs: Last Vital Signs Temp 98.1 F 02/03/25 22:04 Pulse 53 02/03/25 16:13 Resp 13 02/03/25 16:13 BP 133/79 02/03/25 16:13 Pulse Ox 99 02/03/25 16:13 Oxygen Delivery Method Room Air 02/03/25 16:13 BMI result Body Mass Index 26.9 Tobacco/Smoking Status: Tobacco use Status Tobacco use date assessed 02/03/25 02/03/25 16:15 Patient Tobacco Use Status Former Tobacco user 02/03/25 16:15 e-Cigarette/Vaping Use Never Used 02/03/25 16:15 PHQ-9: PHQ-9 Score PHQ-9: Total score 0 02/03/25 22:04 Depression Screening Interpretation: Negative Thrive Assessment: Date of Thrive Assessment Date Thrive assessed 02/03/25 02/03/25 16:15 Currently or been in a relationship where the following occur: No concerns reported Coding Level of Care Code Est Pt Prev Care 40-64y(95740) Diagnoses Encounter for routine history and physical examination Z00.00 Left foot pain M79.672 Bradycardia R00.1 Prothrombin gene mutation D68.52 Decreased white blood cell count D72.819 Elevated liver enzymes R74.8 Additional Codes JOHNNA-7 Assessment Billing - JOHNNA-7 Assessment Tool: JOHNNA-7 Assessment 91169 ([id number]) PHQ-9 - 40560 - PHQ-9 Billing: Yes ([id number]) Assessment & Plan Assessment & Plan (1) Encounter for routine history and physical examination: Code(s): Z00.00 - Encounter for general adult medical examination without abnormal findin gs Plan: Patient is seen today for a routine physical. As part of this visit we reviewed the following issues, which are considered and essential part of preventative health in this age group: - Breast Cancer screening - Annual Music Composition Teacher exam - Screening for colon cancer - Blood pressure screening - Cholesterol screening - Screening for depression - Education about skin cancer - Recommendations about immunizations - Recommendation of an eye exam (2) Left foot pain: Code(s): M79.672 - Pain in left foot Category: Medical Plan: Pain for a year. X-ray ordered for initial evaluation. (3) Bradycardia: Code(s): R00.1 - Bradycardia, unspecified Category: Medical Plan: She had an implantable loop recorder. Given report of ongoing dizziness I would like her to have an EKG done, but due to staffing this could not be done today. Nurse visit will be scheduled. See above notes regarding dizziness and Neurology. (4) Prothrombin gene mutation: Code(s): D68.52 - Prothrombin gene mutation Category: Medical Plan: Patient is on baby aspirin. (5) Decreased white blood cell count: Code(s): D72.819 - Decreased white blood cell count, unspecified Category: Medical Plan: Repeat lab. (6) Elevated liver enzymes: Code(s): R74.8 - Abnormal levels of other serum enzymes Category: Medical Plan: Repeat lab. Plan Schedule physical in 1 year. Orders: Orders XR foot LT min 3V 02/03/25 M79.672 - Pain in left foot AMB EKG-In Office Today R00.1 - Bradycardia, unspecified
[2025-02-03 16:13] VITALS: BP 133/79; PULSE 53; RESP 13; TEMP 35.9; O2SAT 99; BMI 26.9
[2025-02-03 22:04] VITALS: TEMP 36.7
== END 2025-02-03 21:20 | disposition home or self-care (01) ==
LOC: HO.HMCFM 16:03
PROVIDERS: PCP Physician Assistant Medical; Visit Provider Physician Assistant Medical
DX: Z00.00 Encounter for general adult medical examination without abnormal findings (principal); M79.672 Pain in left foot; R00.1 Bradycardia, unspecified; D68.52 Prothrombin gene mutation; D72.819 Decreased white blood cell count, unspecified; R74.8 Abnormal levels of other serum enzymes

== ENCOUNTER → 2025-02-03 16:02 | Outpatient (BNVA) | payer OTHER, SELFPAY | PROVIDERS: PCP Physician Assistant Medical; Visit Provider Physician Assistant Medical | DX: Z00.00 Encounter for general adult medical examination without abnormal findings (principal); M79.672 Pain in left foot; R00.1 Bradycardia, unspecified; D68.52 Prothrombin gene mutation; D72.819 Decreased white blood cell count, unspecified; R74.8 Abnormal levels of other serum enzymes; Z13.31 Encounter for screening for depression; Z13.39 Encounter for screening examination for other mental health and behavioral disorders | CPT/HCPCS: 96127 ==